=== PATIENT | male | born 1970 | race Caucasian/White ===

== ENCOUNTER 2017-02-03 00:10 | Inpatient (IN) | payer BC ==
[~2017-02-03] VITALS: Ht 175.3 cm; Wt 93.6 kg
--- NOTE | 2017-02-03 00:35 | NUR ---
PT C/C RIGHT LOWER ABD PAIN THAT BEGAN 6 HRS AGO. PT STATES PAIN BEGAN TO GET MORE INTENSE LAST 2 HOURS. PT REPORTS TAKING PRESCRIBED PAIN MED APPROX 2200 BUT HAS NOT HAD ANY RELIEF IN PAIN. PT CHANGED INTO GOWN, IN RM, ON FULL MONITOR, WAITING TO BE SEEN BY ER MD.
--- NOTE | 2017-02-03 01:23 | NUR ---
DR PADILLA AT BEDSIDE FOR MSE.
--- NOTE | 2017-02-03 01:50 | NUR ---
PT MEDICATED PER DR PADILLA ORDERS. PT INFORMED REASON FOR MEDS AND VERBALIZED UNDERSTANDING OF TEACHING. PT IV SITE PATENT WITH NO COMPLICATIONS NOTED. PT ON FULL MONITOR FOR SAFETY PRECAUTIONS. PT AT BEDSIDE.
--- NOTE | 2017-02-03 01:50 | NUR ---
HOUSING INSPECTORS AT BEDSIDE.
--- NOTE | 2017-02-03 02:07 | NUR ---
PT PICKED UP BY CT VIA GURNEY. NO SX OF DISTRESS NOTED.
[2017-02-03 02:10] LABS: BASOPHIL % 0.4 % (0-2); PLATELET COUNT 244 x10^3mcL (130-400)
[2017-02-03 02:19] LABS: UA SPECIFIC GRAVITY 1.025 (1.005-1.035); microscopic required? YES; urine erythrocyte 3+ (NEGATIVE)
[2017-02-03 02:21] LABS: CALCIUM 8.9 mg/dL (8.5-10.1); CARBON DIOXIDE 25.7 mmol/L (21-32); CHLORIDE SERUM 103 mmol/L (98-107); GFR1 > 60 mL/min; GLUCOSE SERUM 115 mg/dL (74-106); POTASSIUM SERUM 3.6 mmol/L (3.5-5.1); SODIUM SERUM 139 mmol/L (136-145)
[2017-02-03 02:25] LABS: ALBUMIN 3.9 g/dL (3.4-5.0); ALKALINE PHOSPHATASE 50 U/L (46-116); ALT/SGPT 39 U/L (16-63); AST/SGOT 19 U/L (15-37); BILIRUBIN TOTAL 0.76 mg/dL (0.20-1.00); LIPASE 115 IU/L (73-393); TOTAL PROTEIN, SERUM 7.6 g/dL (6.4-8.2)
--- NOTE | 2017-02-03 02:36 | NUR ---
PT BROUGHT BACK TO FROM CT
--- NOTE | 2017-02-03 03:10 | NUR ---
PT GIVEN IV ANTIBIOTIC PER DR PADILLA ORDERS. PT EDUCATED ON MED AND VERBALIZED UNDERSTANDING OF TEACHING. PT IV SITE PATENT WITH NO SX OF INFILTRATION NOTED. PT ALERT AND AWAKE TALKING TO AT BEDSIDE. NO SX OF DISTRESS NOTED AT THIS TIME.
--- NOTE | 2017-02-03 03:26 | NUR ---
DR PADILLA AT BEDSIDE DISCUSSING PLAN OF CARE
[2017-02-03] MEDS ORDERED: PHENAZOPYRIDIN200 M3 PO (03:37)
--- NOTE | 2017-02-03 04:02 | NUR ---
XRAY AT BEDSIDE
--- NOTE | 2017-02-03 04:13 | NUR ---
ADMISSION REPORT GIVEN TO JUVENAL EXT [id number] TO CONTINUE CARE.
[2017-02-03 04:33] LABS: AMPHETAMINE QUAL UR NONE DETECTED (NEG <=1000)
[2017-02-03 04:40] VITALS: BP 117/76
[2017-02-03 04:41] LABS: T3 TOTAL 1.13 ng/mL
[2017-02-03 04:57] LABS: FREE T4 1.25 ng/dL (0.76-1.46); FREE THYROXINE INDEX 3.5 ug/dL (1.4-4.5); T4(THYROXINE) 9.5 ug/dL (4.7-13.3)
--- NOTE | 2017-02-03 05:15 | NUR ---
NEWLY ADMITTED 46 YEARS OLD, MALE, ALERT AND ORIENTED X4. PLEASANT AND COOPERATIVE. LUNGS CLEAR ON AUSCULTAITONS BILATERALLY ROOM AIR. STARTED IV NS AT 100 ML PER HOUR INFUSING WELL LEFT AC. PATENT AND INTACT. PT RECEIVED ROCEPHIN IV IN ER. TELE NO 26. NSR. EDWAR SCD'S TO BOTH LOWER EXTREMITIES TO PEREVENT DVT. STRAINED ALL URINE. HAD 1 URINATION ABOUT 100 ML AND REDDISH COLOR URINE, LIKE SHANEL COLOR. HE STATED THAT HE HAS NEVER BEEN SNMOKING. STILL HAS OSME ABDOMINAL PAIN MOSTLY IN THE RIGHT LOWER QUADRANT PAIN. CT SCAN RESULT STATING HE HAS SEVERAL STONES SEEN. WILL MONITOR.
--- NOTE | 2017-02-03 05:32 | NUR ---
PT IS RESTING RIGHT NOW. WILL MONITOR.
--- NOTE | 2017-02-03 05:56 | NUR ---
PT C/O RIGHT LOWER QUADRANT PAIN 09/09. MEDICATED WITH NORCO 1 TAB PO. AND FOMAX 1 TAB PO. WILL MONITOR. STRAINED ALL URINE. WILL MONITOR.
[2017-02-03 06:00] LABS: CHOLESTEROL/HDL RATIO 2.8; PHOSPHOROUS 1.5 mg/dL (2.5-4.9)
--- NOTE | 2017-02-03 08:10 | NUR ---
RECEIVED PT IN BED ALERT AND ORIENTED X4. NSR ON TELE MONITOR. ABD SOFT/ROUND, BS ACTIVE. REPORTS SHOOTING PAIN TO RUQ AND LUQ RATED 5/10. WILL MEDICATE ORDERED. DENIES N/V/D. VOIDS FREELY, URINE APPEARS PINKISH. ALL URINE STRAINED. INSTRUCTED TO USE CALL LIGHT WHEN IN NEED OF ANY ASSISTANCE.
[2017-02-03 08:53] VITALS: BP 110/69
[2017-02-03 12:54] VITALS: BP 120/73
[2017-02-03 16:25] VITALS: BP 124/76
--- NOTE | 2017-02-03 18:05 | NUR ---
PT CONTINUES TO COMPLAIN OF SHOOTING PAIN TO RUQ AND LUQ, MEDICATED WITH DILAUDID 2MG PO WITH GOOD RELIEF. PT STATES PAIN IS TOLERABLE AT THIS TIME. DENIES N/V. ALL URINE STRAINED, NO CALCULUS NOTED.
--- NOTE | 2017-02-03 19:30 | NUR ---
PT IS ALERT AND ORIENTED X4. PLEASANT AND COOPERATIVE. LUNGS CLEAR ON AUSCULTATIONS BILATERALLY. ROOM AIR. STILL HAS IV NS AT 100 ML PER HOUR INFUSING WELL IN THE LEFT AC. PATENT AND INTACT. STRIANED ALL URINE. NOTED URINE IS REDDISH AND YELLOWISH. ORANGE COLOR. UA+. SO PT IS TAKING ROCEPHIN IV DAILY WITH NO ADVERSE REACTION NOTED. FOR PAIN MANAGEMENT PT IS RECEIVING NORCO AND DILAUDID PO. WILL MONITOR. EDWAR SCD'S APPLIED TO BOTH LOWER EXTREMITIES FOR DVT PROPHYLAXIS. WILL MONITOR.
--- NOTE | 2017-02-03 20:17 | NUR ---
PT C/O ABDOMINAL PAIN 09/09. MEDICATED WITH DIALUDID 2 MG PO. WILL MONITOR.
[2017-02-03 21:05] VITALS: BP 119/77
--- NOTE | 2017-02-04 00:55 | NUR ---
PT C/O ABDOMINAL PAIN 10/09, MEDICATED WITH DILAUDID 2 MG PO, WILL MONITOR. URINE OUTPUT IS MORE YELLOWISH RIGHT NOW. EARLIER IT WAS TEA COLORED.
--- NOTE | 2017-02-04 05:05 | NUR ---
PT IS RESTING. WAS GIVEN DILAUDID 2 MG PO FOR PAIN AND ACCORDING TO PT IS VERY EFFECTIVE IN MANAGING HIS ABDOMINAL PAIN. STILL HAS IV NS AT 100 ML PER HOUR INFUSING WELL IN THE LEFT AC. MADE COMFORTABLE IN BED. CALL LIGHT WITHIN EASY REACH.
[2017-02-04 05:49] VITALS: BP 115/72
--- NOTE | 2017-02-04 07:05 | NUR ---
PT IN BED. LOW FOWLERS, ABLE TO LET NEEDS KNOWN. IV INFUSING WELL TO LAC #20 C/O PAIN 07/10 TO ERIN AUGUSTIN. BED IN LOWEST POSITION, CALL LIGHT WITHIN REACH.
[2017-02-04 07:20] LABS: CALCIUM 8.9 mg/dL (8.5-10.1); CARBON DIOXIDE 28.7 mmol/L (21-32); CHLORIDE SERUM 107 mmol/L (98-107); CREATININE SERUM 0.8 mg/dL (0.7-1.3); GFR1 > 60 mL/min; GLUCOSE SERUM 81 mg/dL (74-106); PHOSPHOROUS 3.3 mg/dL (2.5-4.9); PLATELET COUNT 213 x10^3mcL (130-400); POTASSIUM SERUM 4.5 mmol/L (3.5-5.1); SODIUM SERUM 141 mmol/L (136-145)
[2017-02-04 08:56] VITALS: BP 124/79
--- NOTE | 2017-02-04 12:50 | NUR ---
PASSED NOON MEDS. PT TOLERATED WELL. PT TOLERATING DIET WELL. DENIES NAUSEA. CALL LIGHT WITHIN REACH.
[2017-02-04 13:10] VITALS: BP 124/76
--- NOTE | 2017-02-04 13:38 | NUR ---
PT AMBULATING IN HALLWAY. NO DISTRESS NOTED. STEADY GAIT.
--- NOTE | 2017-02-04 16:40 | NUR ---
PASSED AFTERNOON MEDS. PT TOLERATED WELL. URINE STRAINED. PT REPORTS TOLERABLE PAIN 3/10 AT MOMENT. EFFORTLESS BREATHING ON ROOM AIR. FAMILY AT BEDSIDE, CALL LIGHT WITHIN REACH.
--- NOTE | 2017-02-04 19:30 | NUR ---
RECEIVED PT FROM PREVIOUS SHIFT. PT A/OX4. DENIES PAIN. DENIES SOB ON RA. IV PATENT AND INFUSING WELL WITH NO S/S OF INFILTRATION. CALL LIGHT WITHIN REACH, BED IN LOW POSITION. WILL CONTINUE TO MONITOR.
[2017-02-04 21:08] VITALS: BP 105/54
[2017-02-05 05:34] VITALS: BP 95/52
[2017-02-05] MEDS ORDERED: DIL2 PO (06:11)
--- NOTE | 2017-02-05 06:21 | NUR ---
NO ACUTE CHANGES THROUGHOUT SHIFT. PT A/OX4. CALL LIGHT WITHIN REACH, BED IN LOW POSITION. WILL CONTINUE TO MONITOR.
[2017-02-05] MEDS ORDERED: CIPRO250 MG PO (06:32)
--- NOTE | 2017-02-05 07:10 | NUR ---
REASSESSMENT DONE. PT AWAKE, ALERT, COOPERATIVE OF CARE. IV INFUSING WELL TO LAC #20 NS AT 120ML/HR. CALL LIGHT WITHIN REACH.
[2017-02-05] MEDS ORDERED: APAP/OXYCODONE1 TA3 PO (08:18)
[2017-02-05 08:20] VITALS: BP 136/77
[2017-02-05 09:17] VITALS: BP 136/77
--- NOTE | 2017-02-05 10:00 | NUR ---
DISCHARGE INSTRUCTIONS GIVEN TO PT. PT VERBALIZED UNDERSTANDING FOR FOLLOW UP APPOINTMENT AND PRESCRIPTION ORDERS. IV DC'D CATHETER INTACT, NO PHLEBITIS. TELE BOX REMOVED. PT ESCORTED OUT OF UNIT SAFELY.
== END 2017-02-05 10:10 | disposition home or self-care (01) | DRG 689 ==
LOC: ED 00:10 → DU 03:53
PROVIDERS: Emergency Medicine; Student in an Organized Health Care Education/Training Program; ADMIT Family Medicine Sports Medicine
DX: N39.0 Urinary tract infection, site not specified (principal); N17.0 Acute kidney failure with tubular necrosis; J98.11 Atelectasis; N20.0 Calculus of kidney; R31.9 Hematuria, unspecified; R73.03 Prediabetes; R80.9 Proteinuria, unspecified; E66.9 Obesity, unspecified; Z68.30 Body mass index [BMI] 30.0-30.9, adult
CPT/HCPCS: 82962; 83880; 84439; J0696; J1170; J1885; J2405; J3490; J7030; Q0092

== ENCOUNTER 2019-09-30 05:22 | Emergency (ER) | payer OTHER ==
[~2019-09-30] VITALS: Ht 175.3 cm; Wt 98.9 kg
[~2019-09-30 05:22] MED LIST: APAP/OXYCODONE1 TA3 PO; CIPRO250 MG PO; DIL2 PO; PHENAZOPYRIDIN200 M3 PO
[2019-09-30 05:26] VITALS: Ht 175.3 cm; Wt 98.9 kg
[2019-09-30 07:14] LABS: CALCIUM 8.7 mg/dL (8.5-10.1); CARBON DIOXIDE 20.6 mmol/L (21-32); CHLORIDE SERUM 104 mmol/L (98-107); CREATININE SERUM 0.8 mg/dL (0.7-1.3); GFR1 > 60 mL/min; GLUCOSE SERUM 110 mg/dL (74-106); POTASSIUM SERUM 3.7 mmol/L (3.5-5.1); SODIUM SERUM 138 mmol/L (136-145)
[2019-09-30 07:18] LABS: ALBUMIN 3.7 g/dL (3.4-5.0); ALKALINE PHOSPHATASE 58 U/L (46-116); ALT/SGPT 77 U/L (16-63); AST/SGOT 33 U/L (15-37); BILIRUBIN TOTAL 0.5 mg/dL (0.20-1.00); TOTAL PROTEIN, SERUM 7.1 g/dL (6.4-8.2)
[2019-09-30 08:35] LABS: PLATELET COUNT 204 x10^3mcL (130-400)
[2019-09-30 08:58] VITALS: BP 107/73
== END 2019-09-30 08:58 | disposition home or self-care (01) ==
LOC: ED 05:22
PROVIDERS: Emergency Medicine
DX: R55 Syncope and collapse (principal); R61 Generalized hyperhidrosis; R42 Dizziness and giddiness
CPT/HCPCS: 82962; Q0092